=== PATIENT | female | born 1980 | race Caucasian/White ===

== ENCOUNTER 2025-05-19 16:20 | Emergency (ER) | payer OTHER ==
[~2025-05-19] VITALS: Ht 170.2 cm; Wt 89.4 kg
[2025-05-19 16:42] VITALS: TEMP 98.3
[2025-05-19 17:25] LABS: PLATELET COUNT (AUTO) 290 K/uL (150-450); RED BLOOD CELL COUNT(AUTO) 5.18 MIL/uL (4.0-5.2); RED CELL DISTRIBUTION WIDTH 13.3 % (11.5-15.0); WHITE BLOOD COUNT (AUTO) 9.8 K/uL (4.3-11.0)
[2025-05-19] MEDS: IV NS 0.9% 1,000 ML BAG IV ONE (17:25)
[2025-05-19 17:35] LABS: CALCIUM, SERUM 9.4 mg/dL (8.5-10.1); CREATININE 1.4 mg/dL (0.6-1.3); SODIUM SERUM 136 mmol/L (136-145); UREA NITROGEN, BLOOD 12 mg/dL (7-18)
[2025-05-19 17:38] LABS: INR 1.18 (0.91-1.10)
[2025-05-19 17:41] LABS: ASPARTATE AMINOTRANSFERASE 13 U/L (15-37); TOTAL PROTEIN, SERUM 7.7 g/dL (6.4-8.2)
[2025-05-19 19:00] VITALS: BP 142/108; O2SAT 97
== END 2025-05-19 21:10 | disposition short-term general hospital (02) ==
LOC: ER 16:24
DX: G93.9 Disorder of brain, unspecified (principal); Z88.2 Allergy status to sulfonamides
CPT/HCPCS: 99285; 96360; 70450; 71045; 93005; 85025; 80048; 80076; 36415; 84484; 85730; 82962; J7030